=== PATIENT | female | born 1970 | race Caucasian/White ===

== ENCOUNTER → 2016-07-26 | Outpatient (CLI) | payer BC, OTHER ==
[~2016-07-26] MED LIST: ASPITAB44 PO; BSP/10 PO; CITA40TA4 PO; CYCL10TA6 PO; GABA-113 PO
== END | disposition home or self-care (01) ==
LOC: C.CPL 14:39
PROVIDERS: ATTEND Psychiatry & Neurology Psychiatry
DX: Z79.899 Other long term (current) drug therapy (principal)